=== PATIENT | female | born 1955 | race Caucasian/White ===

== ENCOUNTER → 2018-02-18 | Day surgery (SDC) | payer OTHER ==
[~2018-02-18] MED LIST: ENALAPRIL MALEA20 MG PO; NAPROXEN SODIU550 MG PO; SIMVASTATIN20 MG PO; TOPROL XL25 M1 PO
== END | disposition home or self-care (01) ==
LOC: ADM 02-13 09:00 → CIR.AMB 05:56
DX: N95.0 Postmenopausal bleeding (principal); N84.0 Polyp of corpus uteri; C54.1 Malignant neoplasm of endometrium; N72 Inflammatory disease of cervix uteri